=== PATIENT | male | born 1940 | race Caucasian/White ===

== ENCOUNTER 2024-09-06 13:05 | Outpatient (CLI) | payer MEDICARE, SELFPAY ==
[2024-09-06 10:06] LABS: Abs Immature Grans 0.07 10^3/uL (0.0-0.06); HCT 36.4 % (40.0-50.0); HGB 11.8 g/dL (13.5-17.5); Immature Grans % 0.6 %; MCH 28.4 pg (27.0-33.0); MCHC 32.4 % (32.0-36.0); MCV 88 fL (80-95); MPV 9.3 fL (8.0-11.0); Platelet Count 398 10^3/uL (130-400); RBC 4.15 10^6/uL (4.36-5.78); RDW 14.1 % (11.8-14.1); RDW-SD 45.2 fL; WBC 12.59 10^3/uL (4.4-10.8)
[2024-09-06 10:16] LABS: ALT 23 U/L (16-63); AST 18 U/L (15-37); Albumin 2.8 g/dL (3.4-5.0); Alkaline Phosphatase 130 U/L (46-116); Anion Gap 8.9 mmol/L (3-11); BUN 25 mg/dL (7-18); Bilirubin, Total 0.7 mg/dL (0.2-1.0); CO2 29.1 mmol/L (21.0-32.0); Calcium 8.9 mg/dL (8.5-10.1); Chloride 98 mmol/L (98-107); Estimated GFR 45.91 (mL/min/1.73m2); Glucose 322 mg/dL (74-106); Potassium 3.8 mmol/L (3.5-5.1); Sodium 136 mmol/L (136-145); TSH 3.28 uIU/mL (0.36-3.74); Total Protein 7.8 g/dL (6.4-8.2)
== END 2024-09-06 13:06 | disposition home or self-care (01) ==
PROVIDERS: Visit Provider Internal Medicine Hematology
DX: E46 Unspecified protein-calorie malnutrition (principal); C44.40 Unspecified malignant neoplasm of skin of scalp and neck
CPT/HCPCS: 36415; 80053; 84439; 84443; 85025

== ENCOUNTER 2024-09-27 04:23 | Outpatient (CLI) | payer MEDICARE, SELFPAY ==
[2024-09-27 09:29] LABS: Abs Immature Grans 0.03 10^3/uL (0.0-0.06); HCT 36.4 % (40.0-50.0); HGB 11.7 g/dL (13.5-17.5); Immature Grans % 0.4 %; MCH 29.3 pg (27.0-33.0); MCHC 32.1 % (32.0-36.0); MCV 91 fL (80-95); MPV 9.2 fL (8.0-11.0); Platelet Count 214 10^3/uL (130-400); RBC 4.00 10^6/uL (4.36-5.78); RDW 14.6 % (11.8-14.1); RDW-SD 48.8 fL; WBC 6.87 10^3/uL (4.4-10.8)
[2024-09-27 10:03] LABS: ALT 21 U/L (16-63); AST 24 U/L (15-37); Albumin 3.0 g/dL (3.4-5.0); Alkaline Phosphatase 132 U/L (46-116); Anion Gap 5.7 mmol/L (3-11); BUN 22 mg/dL (7-18); Bilirubin, Total 0.6 mg/dL (0.2-1.0); CO2 31.3 mmol/L (21.0-32.0); Calcium 8.5 mg/dL (8.5-10.1); Chloride 101 mmol/L (98-107); Estimated GFR 45.91 (mL/min/1.73m2); Glucose 247 mg/dL (74-106); Potassium 4.0 mmol/L (3.5-5.1); Sodium 138 mmol/L (136-145); TSH 4.54 uIU/mL (0.36-3.74); Total Protein 7.6 g/dL (6.4-8.2)
== END 2024-09-27 04:24 | disposition home or self-care (01) ==
LOC: LBO 04:23
PROVIDERS: Visit Provider Internal Medicine Hematology
DX: E46 Unspecified protein-calorie malnutrition (principal); C44.40 Unspecified malignant neoplasm of skin of scalp and neck
CPT/HCPCS: 36415; 80053; 84439; 84443; 85025

== ENCOUNTER 2024-10-25 07:34 | Outpatient (CLI) | payer MEDICARE, SELFPAY ==
[2024-10-25 08:13] LABS: Abs Immature Grans 0.04 10^3/uL (0.0-0.06); HCT 37.7 % (40.0-50.0); HGB 12.5 g/dL (13.5-17.5); Immature Grans % 0.5 %; MCH 29.7 pg (27.0-33.0); MCHC 33.2 % (32.0-36.0); MCV 90 fL (80-95); MPV 9.4 fL (8.0-11.0); Platelet Count 249 10^3/uL (130-400); RBC 4.21 10^6/uL (4.36-5.78); RDW 14.3 % (11.8-14.1); RDW-SD 46.4 fL; WBC 7.35 10^3/uL (4.4-10.8)
[2024-10-25 08:40] LABS: ALT 20 U/L (16-63); AST 22 U/L (15-37); Albumin 3.2 g/dL (3.4-5.0); Alkaline Phosphatase 136 U/L (46-116); Anion Gap 8.0 mmol/L (3-11); BUN 27 mg/dL (7-18); Bilirubin, Total 0.9 mg/dL (0.2-1.0); CO2 28.0 mmol/L (21.0-32.0); Calcium 9.0 mg/dL (8.5-10.1); Chloride 101 mmol/L (98-107); Estimated GFR 45.91 (mL/min/1.73m2); Glucose 241 mg/dL (74-106); Potassium 3.7 mmol/L (3.5-5.1); Sodium 137 mmol/L (136-145); TSH 5.42 uIU/mL (0.36-3.74); Total Protein 8.0 g/dL (6.4-8.2)
== END 2024-10-25 07:35 | disposition home or self-care (01) ==
LOC: LBO 10-26 07:34
PROVIDERS: Visit Provider Internal Medicine Hematology
DX: E46 Unspecified protein-calorie malnutrition (principal); C44.40 Unspecified malignant neoplasm of skin of scalp and neck
CPT/HCPCS: 36415; 80053; 84439; 84443; 85025

== ENCOUNTER 2024-11-22 03:28 | Outpatient (CLI) | payer MEDICARE, SELFPAY ==
[2024-11-22 10:18] LABS: Abs Immature Grans 0.04 10^3/uL (0.0-0.06); HCT 37.8 % (40.0-50.0); HGB 12.4 g/dL (13.5-17.5); Immature Grans % 0.5 %; MCH 29.8 pg (27.0-33.0); MCHC 32.8 % (32.0-36.0); MCV 91 fL (80-95); MPV 9.3 fL (8.0-11.0); Platelet Count 248 10^3/uL (130-400); RBC 4.16 10^6/uL (4.36-5.78); RDW 13.7 % (11.8-14.1); RDW-SD 45.9 fL; WBC 7.46 10^3/uL (4.4-10.8)
[2024-11-22 10:46] LABS: ALT 25 U/L (16-63); AST 22 U/L (15-37); Albumin 3.2 g/dL (3.4-5.0); Alkaline Phosphatase 141 U/L (46-116); Anion Gap 9.0 mmol/L (3-11); BUN 25 mg/dL (7-18); Bilirubin, Total 0.5 mg/dL (0.2-1.0); CO2 28.0 mmol/L (21.0-32.0); Calcium 8.5 mg/dL (8.5-10.1); Chloride 100 mmol/L (98-107); Estimated GFR 42.49 (mL/min/1.73m2); Glucose 352 mg/dL (74-106); Potassium 3.7 mmol/L (3.5-5.1); Sodium 137 mmol/L (136-145); TSH 3.81 uIU/mL (0.36-3.74); Total Protein 7.5 g/dL (6.4-8.2)
== END 2024-11-22 03:29 | disposition home or self-care (01) ==
LOC: LBO 03:28
PROVIDERS: Visit Provider Internal Medicine Hematology
DX: E46 Unspecified protein-calorie malnutrition (principal); C44.40 Unspecified malignant neoplasm of skin of scalp and neck
CPT/HCPCS: 36415; 80053; 84439; 84443; 85025

== ENCOUNTER 2024-12-20 03:41 | Outpatient (CLI) | payer MEDICARE, SELFPAY ==
[2024-12-20 09:36] LABS: Abs Immature Grans 0.03 10^3/uL (0.0-0.06); HCT 37.9 % (40.0-50.0); HGB 12.4 g/dL (13.5-17.5); Immature Grans % 0.3 %; MCH 29.7 pg (27.0-33.0); MCHC 32.7 % (32.0-36.0); MCV 91 fL (80-95); MPV 9.3 fL (8.0-11.0); Platelet Count 254 10^3/uL (130-400); RBC 4.17 10^6/uL (4.36-5.78); RDW 13.4 % (11.8-14.1); RDW-SD 45.1 fL; WBC 8.80 10^3/uL (4.4-10.8)
[2024-12-20 09:58] LABS: ALT 49 U/L (16-63); AST 31 U/L (15-37); Albumin 3.1 g/dL (3.4-5.0); Alkaline Phosphatase 156 U/L (46-116); Anion Gap 10.9 mmol/L (3-11); BUN 31 mg/dL (7-18); Bilirubin, Total 0.6 mg/dL (0.2-1.0); CO2 28.1 mmol/L (21.0-32.0); Calcium 8.7 mg/dL (8.5-10.1); Chloride 98 mmol/L (98-107); Glucose 375 mg/dL (74-106); Potassium 3.9 mmol/L (3.5-5.1); Sodium 137 mmol/L (136-145); TSH 3.99 uIU/mL (0.36-3.74); Total Protein 7.9 g/dL (6.4-8.2)
== END 2024-12-20 03:42 | disposition home or self-care (01) ==
PROVIDERS: Visit Provider Internal Medicine Hematology
DX: E46 Unspecified protein-calorie malnutrition (principal); C44.40 Unspecified malignant neoplasm of skin of scalp and neck
CPT/HCPCS: 36415; 80053; 84439; 84443; 85025

== ENCOUNTER 2025-01-10 03:46 | Outpatient (CLI) | payer MEDICARE, SELFPAY ==
[2025-01-10 09:22] LABS: Abs Immature Grans 0.04 10^3/uL (0.0-0.06); HCT 37.2 % (40.0-50.0); HGB 12.1 g/dL (13.5-17.5); Immature Grans % 0.4 %; MCH 30.0 pg (27.0-33.0); MCHC 32.5 % (32.0-36.0); MCV 92 fL (80-95); MPV 9.5 fL (8.0-11.0); Platelet Count 228 10^3/uL (130-400); RBC 4.04 10^6/uL (4.36-5.78); RDW 13.2 % (11.8-14.1); RDW-SD 45.1 fL; WBC 9.32 10^3/uL (4.4-10.8)
[2025-01-10 09:41] LABS: ALT 24 U/L (10-49); AST 28 U/L (<34); Albumin 3.9 g/dL (3.4-5.0); Alkaline Phosphatase 146 U/L (46-116); Anion Gap 6.2 mmol/L (3-11); BUN 29 mg/dL (9-23); Bilirubin, Total 0.60 mg/dL (0.2-1.2); CO2 27.8 mmol/L (20.0-31.0); Calcium 8.6 mg/dL (8.3-10.6); Chloride 102 mmol/L (98-107); Glucose 270 mg/dL (74-106); Potassium 4.3 mmol/L (3.5-5.1); Sodium 136 mmol/L (136-145); Total Protein 7.6 g/dL (5.7-8.2)
[2025-01-10 09:43] LABS: TSH 3.84 uIU/mL (0.55-4.78)
== END 2025-01-10 03:47 | disposition home or self-care (01) ==
LOC: LBO 03:46
PROVIDERS: Visit Provider Internal Medicine Hematology
DX: E46 Unspecified protein-calorie malnutrition (principal); C44.40 Unspecified malignant neoplasm of skin of scalp and neck
CPT/HCPCS: 36415; 80053; 84439; 84443; 85025

== ENCOUNTER 2025-01-31 00:43 | Outpatient (CLI) | payer MEDICARE, SELFPAY ==
[2025-01-31 12:43] LABS: Abs Immature Grans 0.02 10^3/uL (0.0-0.06); HCT 38.1 % (40.0-50.0); HGB 12.6 g/dL (13.5-17.5); Immature Grans % 0.3 %; MCH 30.2 pg (27.0-33.0); MCHC 33.1 % (32.0-36.0); MCV 91 fL (80-95); MPV 9.3 fL (8.0-11.0); Platelet Count 258 10^3/uL (130-400); RBC 4.17 10^6/uL (4.36-5.78); RDW 13.9 % (11.8-14.1); RDW-SD 46.7 fL; WBC 6.84 10^3/uL (4.4-10.8)
[2025-01-31 13:03] LABS: TSH 2.21 uIU/mL (0.55-4.78)
[2025-01-31 13:08] LABS: ALT 22 U/L (10-49); AST 28 U/L (<34); Albumin 3.9 g/dL (3.2-5.0); Alkaline Phosphatase 130 U/L (46-116); Anion Gap 9.3 mmol/L (3-11); BUN 30 mg/dL (9-23); Bilirubin, Total 0.6 mg/dL (0.2-1.2); CO2 24.7 mmol/L (20.0-31.0); Calcium 8.6 mg/dL (8.3-10.6); Chloride 103 mmol/L (98-107); Glucose 316 mg/dL (74-106); Potassium 4.2 mmol/L (3.5-5.1); Sodium 137 mmol/L (136-145); Total Protein 7.6 g/dL (5.7-8.2)
== END 2025-01-31 00:44 | disposition home or self-care (01) ==
LOC: LBO 00:43
PROVIDERS: Visit Provider Internal Medicine Hematology
DX: E46 Unspecified protein-calorie malnutrition (principal); C44.40 Unspecified malignant neoplasm of skin of scalp and neck
CPT/HCPCS: 36415; 80053; 84439; 84443; 85025